=== PATIENT | male | born 1980 | race Caucasian/White ===

== ENCOUNTER 2017-05-04 23:20 | Emergency (ER) | payer MEDICAID ==
[~2017-05-04] VITALS: Ht 170.2 cm; Wt 86.2 kg
[2017-05-04 23:30] VITALS: BP 114/72
[2017-05-04 23:36] VITALS: BP 114/72
--- NOTE | 2017-05-04 23:36 | NUR ---
VISION ACUITY BOTH EYE, 20/30, RT EYE 20/30, LEFT EYE 20/30
--- NOTE | 2017-05-04 23:40 | NUR ---
RETURN BACK TO [facility] IN STABLE CONDITION.A/W FOR A BED, ERMD NOTED .
--- NOTE | 2017-05-05 01:00 | NUR ---
PATIENT CALLED TO PUT ON BED, NO RESPONSE
--- NOTE | 2017-05-05 01:10 | NUR ---
CALLED FOR THE SECOND TIME NO RESPONSE.
--- NOTE | 2017-05-05 01:22 | NUR ---
PATIENT CALLED FOR THE THIRD TIME NO RESPONSE, PATIENT LEFT WITHOUT BEING SEEN BY DR. PATEL. NO FURTHER CARE PROVIDED FOR PATIENT.
== END 2017-05-05 01:22 | disposition left against medical advice (07) ==
LOC: MED 23:20
DX: H57.12 Ocular pain, left eye (principal); Z53.21 Procedure and treatment not carried out due to patient leaving prior to being seen by health care provider

== ENCOUNTER 2022-01-09 19:52 | Emergency (ER) | payer MEDICAID ==
[~2022-01-09] VITALS: Ht 170.2 cm; Wt 90.9 kg
[2022-01-09 20:09] VITALS: BP 139/88
--- NOTE | 2022-01-09 20:12 | NUR ---
PT SENT TO LOBBY
[2022-01-09] MEDS ORDERED: IBUP-2213 PO (21:15)
[2022-01-09] MEDS ORDERED: PENICILLIN V POTASSIUM 250 MG TAB PO ONE (21:15)
[2022-01-09] MEDS ORDERED: HYDROcodone/APAP 10/325 MG 1 TAB TAB PO ONE (21:15)
[2022-01-09] MEDS ORDERED: PENI250T21 PO (21:15)
[2022-01-09] MEDS ORDERED: KETOROLAC 30 MG/ML VIAL IM ONE (21:15)
[2022-01-09] MEDS ORDERED: HYDR-5080 PO (21:19)
--- NOTE | 2022-01-09 21:28 | NUR ---
PT MOVED TO BED#6
--- NOTE | 2022-01-09 21:43 | NUR ---
41YR OLD MALE BIB SELF C/O DENTAL PAIN X1DAY. PAIN LEVEL 02/21. DENIES INJURY OR TRAUMA TO MOUTH . HAS DENTAL APPT TOMMORROW. PT A&OX4. DENIES SOB OR CP. RESP EVEN AND UNLABORED. PT SITTING IN CHAIR . NKDA NO MED HX
[2022-01-09 21:55] VITALS: BP 128/79
--- NOTE | 2022-01-09 21:55 | NUR ---
Patient discharged with v/s stable. Written and verbal after care instructions given and explained. Patient alert, oriented and verbalized understanding of instructions. Ambulatory with steady gait. All questions addressed prior to discharge. ID band removed. Patient advised to follow up with PMD. Rx of HYDROCODONE IBUPROFEN given.
--- NOTE | 2022-01-09 21:58 | NUR ---
The patient's care was reviewed and supervised by Lyssa Baugh RN.
== END 2022-01-09 21:55 | disposition home or self-care (01) ==
LOC: MED 19:52
DX: K08.89 Other specified disorders of teeth and supporting structures (principal); Z79.899 Other long term (current) drug therapy; Z87.442 Personal history of urinary calculi
CPT/HCPCS: 96372; 99283; J1885

== ENCOUNTER 2022-05-20 17:25 | Emergency (ER) | payer MEDICAID ==
[~2022-05-20] VITALS: Ht 165.1 cm; Wt 68.0 kg
[~2022-05-20 17:25] MED LIST: HYDR-5080 PO; IBUP-2213 PO; PENI250T21 PO
[2022-05-20 17:47] VITALS: BP 113/74
[2022-05-20] MEDS ORDERED: ACETAMINOPHEN 325 MG TAB PO ONE (18:55)
[2022-05-20] MEDS ORDERED: LIDOCAINE 1% 500 MG/ 50 ML VIAL INJ ONE (18:55)
--- NOTE | 2022-05-20 19:43 | NUR ---
PT TO BED 03.
[2022-05-20] MEDS ORDERED: LIDOCAINE MPF 1% 5 ML ONE (19:52)
[2022-05-20] MEDS ORDERED: IBUP-2213 PO (19:54)
[2022-05-20] MEDS ORDERED: CEPH-588 PO (19:54)
[2022-05-20] MEDS ORDERED: BACI-416 TP (19:54)
[2022-05-20] MEDS ORDERED: ACETAMINOPHEN 325 MG TAB ONE (20:00)
--- NOTE | 2022-05-20 20:10 | NUR ---
VERBAL ORDER FROM YENNY BAKER FOR LIDOCAINE 50MG/5ML FOR PROCEDURE
--- NOTE | 2022-05-20 20:20 | NUR ---
Written and verbal after care instructions given and explained. Patient alert, oriented and verbalized understanding of instructions. Ambulatory with steady gait. All questions addressed prior to discharge. ID band removed. Patient advised to follow up with PMD. Rx of BACITRACIN, KEFLEX, IBUPROFEN given. Patient educated on indication of medication including possible reaction and side effects. Opportunity to ask questions provided and answered.
== END 2022-05-20 20:23 | disposition home or self-care (01) ==
LOC: MED 17:25
DX: S81.012A Laceration without foreign body, left knee, initial encounter (principal); W26.9XXA Contact with unspecified sharp object(s), initial encounter; Y93.89 Activity, other specified; Y92.89 Other specified places as the place of occurrence of the external cause; Y99.8 Other external cause status
CPT/HCPCS: 12001; 90471; 90715; 99283; J2001

== ENCOUNTER 2023-03-07 00:40 | Emergency (ER) | payer MEDICAID ==
[~2023-03-07] VITALS: Ht 165.1 cm; Wt 92.1 kg
[~2023-03-07 00:40] MED LIST changes: +BACI-418 TP; +CEPH-588 PO
[2023-03-07 00:47] VITALS: BP 119/74; PULSE 65; RESP 16; TEMP 97.5; O2SAT 99
[2023-03-07 01:29] LABS: FLU A ANTIGEN negative (NEGATIVE); FLU B ANTIGEN NEGATIVE (NEGATIVE)
[2023-03-07] MEDS ORDERED: LORazepam 1 MG TAB PO ONE (01:45)
[2023-03-07] MEDS ORDERED: ATA25 PO (02:40)
== END 2023-03-07 03:00 | disposition home or self-care (01) ==
LOC: MED 00:40
DX: R06.02 Shortness of breath (principal); Z20.822 Contact with and (suspected) exposure to COVID-19; Z79.899 Other long term (current) drug therapy; Z79.1 Long term (current) use of non-steroidal anti-inflammatories (NSAID); Z79.2 Long term (current) use of antibiotics
CPT/HCPCS: 99283